=== PATIENT | female | born 1975 | race Caucasian/White ===

== ENCOUNTER 2019-03-21 16:33 | Emergency (ER) | payer OTHER, SELFPAY ==
[2019-03-21 16:39] VITALS: BP 150/93; PULSE 83; RESP 18; TEMP 36.5; O2SAT 98
[2019-03-21] MEDS: KETOROLAC (*BKC) 60 MG/2 ML VIAL IM (17:37)
--- NOTE | 2019-03-21 17:56 | ED.DENTAL ---
HPI - Dental/Oral General Chief complaint: Dental/Oral Stated complaint: TOOTH PAIN Time Seen by Provider: 03/21/19 16:47 Source: patient Mode of arrival: ambulatory Limitations: no limitations History of Present Illness HPI Narrative: This is a 43-year-old female that presents emergency department for toothache since yesterday. Reports pain and swelling around a left lower molar. Reports pain is radiating into her jaw and left ear. Denies fever, trouble swallowing, or dyspnea. Location: Tooth # (18) Related Data Allergies Allergy/AdvReac Type Severity Reaction Status Date / Time Sulfa (Sulfonamide Allergy Mild Anaphylaxis Verified 03/21/19 16:44 Antibiotics) Review of Systems Review of Systems: Narrative: CONSTITUTIONAL: Denies fever ENT: Reports dentalgia RESPIRATORY: Denies dyspnea. GASTROINTESTINAL: Denies vomiting All systems reviewed & are unremarkable except as noted in HPI and below PMFSH Surgical History Surgical History (Updated 03/21/19 @ 17:58 by Lexi Son PA-C) History of section Social History Social History (Updated 03/21/19 @ 17:58 by Lexi Son PA-C) Smoking status: Current some day smoker Substance use: never Gender identity (if verbalized by the patient): Female Exam Narrative: Exam Narrative: GENERAL: Well-appearing, well-nourished, and in no acute distress. HEAD: Normocephalic, atraumatic. EYES: EOMI. ENT: Mucous membranes moist. Oropharynx without tonsillar hypertrophy exudate or other lesions. Bilateral TMs pearly dunn non-bulging. Poor dentition. Tooth #18 tender to palpation, no surrounding erythema, edema or fluctuance to suggest abscess. No trismus. Floor of mouth soft NECK: Supple. Tender left submandibular adenopathy CHEST: Clear to auscultation. No respiratory distress. No wheezes rales or rhonchi HEART: Regular rate and rhythm. No murmur heard. Normal peripheral pulses. ABDOMEN: Soft, nontender, nondistended, normal active bowel sounds. EXTREMITIES: Normal range of motion. No edema. SKIN: Warm, dry, no rash. NEURO: No focal deficits. Alert and oriented x3. PSYCH: Normal mood and affect Course Vital Signs Vital signs: Vital Signs Temperature 97.7 F 03/21/19 16:39 Pulse Rate 83 03/21/19 16:39 Respiratory Rate 18 03/21/19 16:39 Blood Pressure 150/93 H 03/21/19 16:39 Pulse Oximetry 98 03/21/19 16:39 Temperature 97.7 F 03/21/19 16:39 Pulse Rate 83 03/21/19 16:39 Respiratory Rate 18 03/21/19 16:39 Blood Pressure 150/93 H 03/21/19 16:39 Pulse Oximetry 98 03/21/19 16:39 MDM - Dental/Oral MDM Narrative Medical decision making narrative: Patient presents the emergency department for toothache since yesterday. She is afebrile and nontoxic-appearing. No surrounding erythema or fluctuance to suggest abscess. No trismus. Floor of mouth is soft. Patient will be started on oral antibiotics. She is to follow-up with her dentist. She was given warnings to return to the ER Critical Care Time Critical Care Time Critical Care Time: No Discharge Plan Discharge Clinical Impression: Toothache Patient Disposition: Home, Self-Care Condition: Stable Instructions: Antibiotic Form, Toothache (ED) Additional Instructions: Return to the Emergency Department if you experience fever >101, increasing swelling and redness of your tooth, or any other symptoms that are concerning to you Take antibiotic as prescribed. Tylenol or Ibuprofen as needed for pain. You can apply a dab of clove oil to a Qtip and apply to the tooth to help numb the area Follow up with your dentist Prescriptions: New amoxicillin-pot clavulanate 875-125 mg tablet 1 tablet PO Q12H 7 Days Qty: 14 RF: 0 Follow-up/Referrals: Jeremy Dwyer MD [Primary Care Provider] - Stand Alone Forms: Work/School Release IP
[2019-03-21 18:05] VITALS: TEMP 36.5
== END 2019-03-21 18:43 | disposition home or self-care (01) ==
PROVIDERS: Emergency Provider Emergency Medicine; PCP Family Medicine
DX: K08.89 Other specified disorders of teeth and supporting structures (principal)
CPT/HCPCS: 96372; 99283; J1885